=== PATIENT | male | born 1945 | race Caucasian/White ===

== ENCOUNTER → 2016-11-27 | Outpatient (CLI) | payer BC ==
[2013-12-26 11:16] VITALS: BP 118/72
== END ==
LOC: LAB 08:08
DX: I48.0 Paroxysmal atrial fibrillation (principal); E78.00 Pure hypercholesterolemia, unspecified; R94.39 Abnormal result of other cardiovascular function study

== ENCOUNTER → 2017-03-12 | Outpatient (CLI) | payer BC ==
[2013-12-26 11:16] VITALS: BP 118/72
== END ==
LOC: LAB 08:59
DX: E78.5 Hyperlipidemia, unspecified (principal)

== ENCOUNTER → 2017-03-13 | Outpatient (CLI) | payer BC ==
[2013-12-26 11:16] VITALS: BP 118/72
== END ==
LOC: LAB 11:35
DX: L03.019 Cellulitis of unspecified finger (principal); B96.89 Other specified bacterial agents as the cause of diseases classified elsewhere

== ENCOUNTER → 2017-06-22 | Outpatient (CLI) | payer BC ==
[2013-12-26 11:16] VITALS: BP 118/72
== END ==
LOC: LAB 14:32
DX: E78.5 Hyperlipidemia, unspecified (principal)

== ENCOUNTER → 2019-06-04 | Outpatient (CLI) | payer BC ==
[2013-12-26 11:16] VITALS: BP 118/72
== END ==
LOC: LAB 10:13
DX: E78.5 Hyperlipidemia, unspecified (principal)

== ENCOUNTER 2019-11-06 13:30 | Outpatient (RCR) | payer BC ==
[2013-12-26 11:16] VITALS: BP 118/72
== END 2019-12-31 | disposition home or self-care (01) ==
LOC: CARDREHAB
DX: Z48.812 Encounter for surgical aftercare following surgery on the circulatory system (principal); Z95.1 Presence of aortocoronary bypass graft; I25.10 Atherosclerotic heart disease of native coronary artery without angina pectoris

== ENCOUNTER → 2020-10-07 | Outpatient (CLI) | payer BC ==
[2013-12-26 11:16] VITALS: BP 118/72
[2020-10-07 11:08] LABS: HEMOGLOBIN 13.5 g/dL (13.5-18.0); MEAN PLATELET VOLUME 8.2 fl (7.4-10.4); RED BLOOD COUNT 4.19 M/mm3 (4.20-5.60); RED CELL DISTRIBUTION WIDTH 12.9 % (11.5-14.5); WHITE BLOOD COUNT 5.2 K/mm3 (4.8-10.8)
[2020-10-07 11:12] LABS: POTASSIUM 4.7 mmol/L (3.5-5.1)
[2020-10-07 11:13] LABS: ALBUMIN 3.9 g/dL (3.4-4.8)
[2020-10-07 11:14] LABS: CALCIUM 9.2 mg/dL (8.3-10.5)
[2020-10-07 11:15] LABS: TOTAL PROTEIN 7.1 g/dL (6.2-8.1)
[2020-10-07 11:17] LABS: TOTAL BILIRUBIN 0.8 mg/dL (0.2-1.2)
== END ==
LOC: LAB 10:29
PROVIDERS: Internal Medicine Cardiovascular Disease
DX: I48.11 Longstanding persistent atrial fibrillation (principal); I48.0 Paroxysmal atrial fibrillation; I25.10 Atherosclerotic heart disease of native coronary artery without angina pectoris; Z95.1 Presence of aortocoronary bypass graft

== ENCOUNTER → 2021-01-11 | Outpatient (CLI) | payer BC ==
[2013-12-26 11:16] VITALS: BP 118/72
[2021-01-11 14:38] LABS: POTASSIUM 3.9 mmol/L (3.5-5.1)
[2021-01-11 14:39] LABS: ALBUMIN 3.9 g/dL (3.4-4.8)
[2021-01-11 14:40] LABS: CALCIUM 8.9 mg/dL (8.3-10.5)
[2021-01-11 14:41] LABS: TOTAL PROTEIN 7.1 g/dL (6.2-8.1)
[2021-01-11 14:43] LABS: TOTAL BILIRUBIN 0.9 mg/dL (0.2-1.2)
== END ==
LOC: LAB 14:19
PROVIDERS: Internal Medicine Cardiovascular Disease
DX: E78.5 Hyperlipidemia, unspecified (principal)

== ENCOUNTER → 2022-11-04 | Outpatient (CLI) | payer MEDICARE, BC ==
[2022-11-04 10:04] LABS: BASO # 0.03 K/mm3 (0.02-0.10); EOS # 0.28 K/mm3 (0.04-0.40); EOS % 4.6 % (0.0-4.0); HEMATOCRIT 40.4 % (42.0-52.0); HEMOGLOBIN 13.3 g/dL (13.5-18.0); LYMPH# 1.93 K/mm3 (1.50-4.00); MEAN CELL VOLUME 97 fl (78-100); MEAN CORPUSCULAR HEMOGLOBIN 32 pg (27-31); MEAN CORPUSCULAR HGB CONC 33 g/dL (33-37); MEAN PLATELET VOLUME 8.1 fl (7.4-10.4); MONO # 0.59 K/mm3 (0.20-0.80); NEU # 3.29 K/mm3 (1.40-6.50); PLATELET COUNT 194 K/mm3 (130-400); RED BLOOD COUNT 4.15 M/mm3 (4.20-5.60); RED CELL DISTRIBUTION WIDTH 13.5 % (11.5-14.5); WHITE BLOOD COUNT 6.1 K/mm3 (4.8-10.8)
[2022-11-04 10:09] LABS: POTASSIUM 4.3 mmol/L (3.5-5.1)
[2022-11-04 10:10] LABS: ALBUMIN 3.9 g/dL (3.4-4.8)
[2022-11-04 10:11] LABS: CALCIUM 9.2 mg/dL (8.3-10.5)
[2022-11-04 10:12] LABS: TOTAL PROTEIN 6.8 g/dL (6.2-8.1)
[2022-11-04 10:14] LABS: TOTAL BILIRUBIN 0.6 mg/dL (0.2-1.2)
== END ==
LOC: LAB 09:48
DX: I48.0 Paroxysmal atrial fibrillation (principal); E78.5 Hyperlipidemia, unspecified

== ENCOUNTER → 2023-12-18 | Outpatient (CLI) | payer MEDICARE, BC | LOC: LAB 09:27 | DX: E78.5 Hyperlipidemia, unspecified (principal) ==